=== PATIENT | female | born 1950 ===

== ENCOUNTER 2017-08-26 18:19 | Emergency (ER) | payer BC ==
[2017-08-26 18:23] VITALS: BP 160/100; PULSE 84; RESP 20; TEMP 98.2; O2SAT 97
--- NOTE | 2017-08-26 19:15 | C.PDOC ---
History Of Present Illness 66 y/o female presents to the ER complaining of pain to her left elbow and wrist after she tripped and fell 40 minutes AT [employer]. Patient states that the pain is mainly in the elbow. However, patient noticed swelling to wrist too. Denies having weakness, numbness, and other injuries. Time Seen by Provider: 08/26/17 19:05 Chief Complaint (Nursing): Upper Extremity Problem/Injury History Per: Patient History/Exam Limitations: no limitations Onset/Duration Of Symptoms: Mins Current Symptoms Are (Timing): Still Present Severity: Moderate Past Medical History Reviewed: Historical Data, Nursing Documentation, Vital Signs Vital Signs: Last Vital Signs Temp 98.2 F 08/26/17 18:21 Pulse 84 08/26/17 18:21 Resp 20 08/26/17 21:00 BP 160/100 H 08/26/17 18:21 Pulse Ox 97 08/26/17 20:23 - Medical History PMH: No Chronic Diseases Surgical History: No Surg Hx Family History: States: No Known Family Hx - Social History Hx Tobacco Use: No Hx Alcohol Use: No Hx Substance Use: No - Immunization History Hx Tetanus Toxoid Vaccination: No Hx Influenza Vaccination: No Hx Pneumococcal Vaccination: No Review Of Systems Except As Marked, All Systems Reviewed And Found Negative. Musculoskeletal: Positive for: Other (left elbow pain, left wrist pain) Neurological: Negative for: Weakness, Numbness Physical Exam - Physical Exam Appears: Non-toxic, No Acute Distress Skin: Normal Color, Warm, Dry Head: Atraumatic, Normacephalic Eye(s): bilateral: Normal Inspection Nose: Normal Oral Mucosa: Moist Neck: Supple Chest: Symmetrical Cardiovascular: Rhythm Regular Respiratory: Normal Breath Sounds, No Rales, No Rhonchi, No Wheezing Extremity: No Normal ROM (unable to flex or pronate left forearm), Tenderness ( tenderness to lateral aspect of left elbow, mild tenderness to radial aspect of left wrist), Swelling (mild swelling to lateral aspect of left elbow, minimal swelling to radial aspect of left wrist), Other (normal ROM in left wrist) Neurological/Psych: Oriented x3, Normal Speech ED Course And Treatment O2 Sat by Pulse Oximetry: 97 (RA) Pulse Ox Interpretation: Normal Medical Decision Making Medical Decision Making: Impression: Arm injury Plan: * Xray * Ice pack * Tylenol given during triage Progress: Xray viewed by me. Wrist shows no fracture. Elbow xray suspect radial head fracture. Information given regarding preliminary nature of x-ray reading, with possibility that a fracture not initially detected in the ED may be found on final reading, with subsequent notification. Patient was therefore placed in posterior orthoglass splint and arm sling applied. Patient was told that close follow up care for further evaluation is mandatory and further imaging may be necessary. Disposition Counseled Patient/Family Regarding: Studies Performed, Diagnosis, Need For Followup, Rx Given - Disposition Referrals: Karon Saldaña MD [Staff Provider] - [facility] [Outside] [facility] [Outside] Disposition: HOME/ ROUTINE Disposition Time: 20:23 Condition: GOOD Additional Instructions: Xray shows possibility of fracture of elbow. Will call with confirmation of Xray result or call ED [phone]. A splint has been applied which is a temporary cast. Do not wet splint, keep out of bath, and consider plastic bag. Take pain medication as needed. It is very important you follow up with orthopedic within 1-4 days. La radiografa muestra la posibilidad de fractura del codo. Llamar con la confirmacin del resultado de la radiografa o llame al ED [phone]. Se salcedo aplicado sofia frula que es un yeso temporal. No humedezca la frula, no la serafin y considere sofia bolsa de plstico. [place] analgsicos segn sea necesario. Es muy importante que realice un seguimiento con ortopedia en 1-4 carroll. Prescriptions: Ibuprofen [Motrin] 600 mg PO Q8 #30 tab traMADol [Ultram] 50 mg PO Q8 #20 tab Instructions: Elbow Fracture (DC) Forms: [facility] (Azeri), Work Excuse Print Language: MALAY - POA Present On Arrival: Falls Or Trauma - Clinical Impression Clinical Impression: Wrist sprain, Elbow fracture, left - PA / TRACK ANNOUNCER / Resident Statement MD/DO has reviewed & agrees with the documentation as recorded. - Scribe Statement The provider has reviewed the documentation as recorded by the Jacoboibe Zhao Gonsales Provider Attestation All medical record entries made by the Scribe were at my direction and personally dictated by me. I have reviewed the chart and agree that the record accurately reflects my personal performance of the history, physical exam, medical decision making, and the department course for this patient. I have also personally directed, reviewed, and agree with the discharge instructions and disposition.
--- NOTE | 2017-08-27 12:17 | RAD ---
PROCEDURE: Left Wrist Radiographs. HISTORY: pain s.p trip and fall COMPARISON: None. FINDINGS: BONES: No acute fracture. JOINTS: Unremarkable. SOFT TISSUES: Normal. OTHER FINDINGS: None. IMPRESSION: No demonstrated fracture or dislocation.
--- NOTE | 2017-08-27 12:23 | RAD ---
PROCEDURE: Radiographs of the left elbow. HISTORY: pain s.p trip and fall COMPARISON: No prior. FINDINGS: BONES: Minimally displaced radial head fracture. JOINTS: Unremarkable. SOFT TISSUES: Normal. JOINT EFFUSION: Anterior joint effusion. OTHER FINDINGS: None IMPRESSION: Minimally displaced radial head fracture.
== END 2017-08-26 21:00 | disposition home or self-care (01) ==
LOC: C.ER 18:19
DX: S42.402A Unspecified fracture of lower end of left humerus, initial encounter for closed fracture (principal); S63.502A Unspecified sprain of left wrist, initial encounter; W01.0XXA Fall on same level from slipping, tripping and stumbling without subsequent striking against object, initial encounter

== ENCOUNTER 2017-09-17 15:06 | Emergency (ER) | payer BC ==
[2017-09-17 15:14] VITALS: BP 134/85; PULSE 81; RESP 17; TEMP 98; O2SAT 95
--- NOTE | 2017-09-17 15:24 | C.PDOC ---
History Of Present Illness Patient is a 66 y/o F presenting with splint dressing change. Patient was seen in ED on 08/26 and was diagnosed with minimally displaced radial head fracture. She saw her orthopedist who placed her in a splint. She is scheduled to return on 10/01 for repeat xrays. She reports that he splint has gotten dirty and she would like to change. Denies other complaints or new pain Time Seen by Provider: 09/17/17 15:15 Chief Complaint (Nursing): Upper Extremity Problem/Injury Past Medical History Vital Signs: Last Vital Signs Temp 98.0 F 09/17/17 15:10 Pulse 81 09/17/17 15:10 Resp 17 09/17/17 15:10 BP 134/85 09/17/17 15:10 Pulse Ox 95 09/17/17 15:26 Family History: States: Unknown Family Hx - Social History Hx Tobacco Use: No Hx Alcohol Use: No Hx Substance Use: No - Immunization History Hx Tetanus Toxoid Vaccination: No Hx Influenza Vaccination: No Hx Pneumococcal Vaccination: No Review Of Systems Constitutional: Negative for: Fever, Chills Cardiovascular: Negative for: Chest Pain Respiratory: Negative for: Cough, Shortness of Breath, SOB with Excertion, Wheezing Gastrointestinal: Negative for: Nausea, Vomiting, Abdominal Pain, Diarrhea, Constipation Musculoskeletal: Positive for: Arm Pain (L arm pain since fall) Neurological: Negative for: Weakness, Numbness Physical Exam - Physical Exam Appears: Well, Non-toxic, No Acute Distress Skin: Normal Color, Warm, Dry Head: Atraumatic, Normacephalic Eye(s): bilateral: Normal Inspection, PERRL, EOMI Extremity: Other (Long arm splint to LUE, distal pulses intact, capillary refill to fingers<2 seconds, moving fingers) ED Course And Treatment O2 Sat by Pulse Oximetry: 95 Medical Decision Making Medical Decision Making: Splint was removed. Arm redressed and old splint reapplied. Mejia wrap applied over it. Placed by tech and checked by me. Normal capillary refill and normal color of fingers. Detailed return instructions given to maintain splint in comfort. Patient instructed to follow-up with her orthopedist. Disposition - Disposition Disposition: HOME/ ROUTINE Disposition Time: 15:26 Condition: GOOD Additional Instructions: Follow-up with your orthopedist as previously scheduled. Return to ED if condition worsens. Keep splint in place. Loosen if you are in pain. Forms: [facility] (South Korean) - Clinical Impression Clinical Impression: Dressing change
== END 2017-09-17 15:37 | disposition home or self-care (01) ==
LOC: C.ER 15:06
DX: Z47.89 Encounter for other orthopedic aftercare (principal)